=== PATIENT | female | born 1995 | race Caucasian/White ===

== ENCOUNTER 2025-11-02 16:23 | Emergency (ER) | payer MEDICAID, SELFPAY ==
[2025-11-02 16:24] VITALS: BMI 23.8
[2025-11-02 16:49] VITALS: BP 112/71; PULSE 75; RESP 18; TEMP 36.8; O2SAT 97; BMI 26.3
--- NOTE | 2025-11-02 16:52 | XR_ITS ---
Examination: Abdomen sonogram, Limited Date and time of exam: November 02, 2025, 1651 hours INDICATIONS: Epigastric pain vomiting beginning 1 year ago Technique: Real-time cruz scale transabdominal sonographic images of the upper abdomen obtained. Findings: Gallstones Normal gallbladder wall 0.3 cm Common bile duct 0.4 cm Pancreatic head 1.9 cm Liver 14.3 cm no focal liver lesions Normal hepatopetal portal venous flow Patent IVC IMPRESSION: Cholelithiasis, negative for cholecystitis
--- NOTE | 2025-11-02 16:53 | EDRME_ITS ---
Rapid Medical Screening Exam [facility] Arrival date/time: 11/02/25 16:23 30-year-old female presents to the Emergency Department for complaint of abdominal pain Chief Complaint: Abdominal Pain Vital signs: Vital Signs Temperature 98.2 F 11/02/25 16:49 Pulse Rate 75 11/02/25 16:49 Respiratory Rate 18 11/02/25 16:49 Blood Pressure 112/71 11/02/25 16:49 Pulse Oximetry (%) 97 11/02/25 16:49 Oxygen Delivery Method Room Air 11/02/25 16:49 Vital signs reviewed by provider: Yes Exam: On exam patient is tenderness in epigastric region Clinical Impression: Lab work and imaging ordered
[2025-11-02 17:28] LABS: Collection Type, Urine Clean Catch; Squamous Epithelial Cell,Urine 0 /hpf (0-5)
[2025-11-02 17:33] LABS: Basophils # (Auto) 0.0 Thou/mm3 (0.0-0.2); Basophils % (Auto) 1 % (0-2.5); Eosinophils # (Auto) 0.1 Thou/mm3 (0.0-0.5); Eosinophils % (Auto) 2 % (0-10); Hematocrit 36.6 % (36.0-46.0); Hemoglobin 11.9 g/dL (12.0-16.0); Immature Granulocytes Auto 0.02 Thou/mm3 (0.00-0.00); Lymphocytes # (Auto) 2.2 Thou/mm3 (1.0-4.8); Lymphocytes % (Auto) 35 % (10-50); Mean Corpuscular HGB Conc 32.5 g/dl (31.0-37.0); Mean Corpuscular Hemoglobin 30.7 pg (25.0-35.0); Mean Corpuscular Volume 94 fL (80-100); Monocytes # (Auto) 0.5 Thou/mm3 (0.0-0.8); Monocytes % (Auto) 8 % (0-12); Neutrophils # (Auto) 3.3 Thou/mm3 (1.8-7.7); Neutrophils % (Auto) 54 % (37-80); Nucleated Red Blood Cell # 0.00 Thou/mm3 (0.00-0.00); Nucleated Red Blood Cell % 0 /100 WBC (0); Platelet Count 252 Thou/mm3 (140-440); RDW Standard Deviation 46.0 fL (36.4-46.3); Red Blood Count 3.88 Miln/mm3 (4.00-5.20); White Blood Count 6.2 Thou/mm3 (3.6-11.0)
[2025-11-02 17:34] LABS: Bilirubin,Urine Negative (Negative); Blood,Urine 1+ (Negative); Clarity,Urine Turbid (Clear/Hazy); Color,Urine Lt-Yellow (Lt Yel-Yel); Glucose, Urine Negative (Negative); Ketones,Urine Negative (Negative); Leukocyte Esterase,Urine Negative (Negative); Nitrite,Urine Positive (Negative); PH,Urine 7.5 (5.0-7.0); Protein,Urine Negative (Neg - Trace); RBC,Urine < 1 /hpf (0-3); Specific Gravity,Urine 1.019 (1.001-1.035); Urobilinogen,Urine Negative mg/dL (0.0-1.0); WBC,Urine 1 /hpf (0-5)
[2025-11-02 17:35] LABS: Culture Indicated,Urine Yes
[2025-11-02 17:36] LABS: HCG Qualitative,Urine Negative
[2025-11-02 17:50] LABS: Alanine Aminotransferase 15 U/L (10-49); Albumin, Serum 4.9 gm/dL (3.5-5.0); Albumin/Globulin Ratio 2.1 (1.2-2.2); Alkaline Phosphatase 41 U/L (46-116); Anion Gap 8 (7-16); Aspartate Amino Transferase 16 U/L (0-34); BUN/Creatinine Ratio 8 Ratio (12-20); Bilirubin,Total 0.6 mg/dL (0.3-1.2); Blood Urea Nitrogen 6 mg/dL (9-23); Calcium 9.4 mg/dL (8.3-10.6); Calcium (Corrected) 9.4 mg/dL (8.5-10.1); Carbon Dioxide 28.3 mMol/L (20.0-31.0); Chloride 108 mMol/L (98-107); Creatinine (Component) 0.8 mg/dL (0.6-1.3); Estimated Creatinine Clearance 91.2 mL/min (>60); Globulin 2.3 gm/dL (2.3-3.5); Glucose 92 mg/dL (74-106); Lipase 38 U/L (12-53); Osmolality,Calculated 284 (275-295); Potassium 4.2 mMol/L (3.4-5.1); Sodium 144 mMol/L (136-145); Total Protein 7.2 gm/dL (5.7-8.2); eGFR > 60 See Note
[2025-11-02] MEDS: METOCLOPRAMIDE INJ 5 MG/ML VIAL 2 ML 10 MG IM (18:09)
--- NOTE | 2025-11-02 19:19 | PC.NURSE ---
NO ANSWER AT 1918 X1
--- NOTE | 2025-11-02 19:27 | PC.NURSE ---
NO ANSWER X2 [phone]
--- NOTE | 2025-11-02 19:50 | PC.NURSE ---
CALLED X3 [phone] NO ANSWER
== END 2025-11-02 19:50 | disposition left against medical advice (07) ==
PROVIDERS: Nurse Practitioner Primary Care; Emergency Provider Emergency Medicine; PCP Family Medicine
DX: R10.13 Epigastric pain (principal); Z53.29 Procedure and treatment not carried out because of patient's decision for other reasons
CPT/HCPCS: 36415; 76705; 80053; 81001; 81025; 83690; 85025; 87077; 87086; 87186; 96372; 99283; J2765